=== PATIENT | male | born 1970 | race Caucasian/White ===

== ENCOUNTER 2018-03-22 11:57 | Inpatient (IN) | payer OTHER ==
[2018-03-22 12:46] VITALS: BMI 30.9
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
[2018-03-22] MEDS ORDERED: MAGNESIUM CITRATE 300 ML BOTTLE PO PRN (14:41)
[2018-03-22] MEDS ORDERED: IBUPROFEN 400 MG TABLET (FP) PO PRN (14:41)
[2018-03-22] MEDS ORDERED: ACETAMINOPHEN 325 MG TABLET (FP) PO PRN (14:41)
[2018-03-22] MEDS ORDERED: MAGNESIUM HYDROX 2400MG/30ML ORAL SUSPENSION 30 ML CUP PO PRN (14:41)
[2018-03-22] MEDS ORDERED: MENTHOL/PHENOL 1 EACH UD MM PRN (14:41)
[2018-03-22] MEDS ORDERED: P-EPHED 60MG/TRIPROLIDI 2.5MG TABLET PO PRN (14:41)
[2018-03-22] MEDS ORDERED: LOPERAMIDE HCL 2 MG CAPSULE PO PRN (14:41)
[2018-03-22] MEDS ORDERED: hydrOXYzine PAMOATE 25 MG CAPSULE (FP) PO PRN (14:41)
[2018-03-22] MEDS ORDERED: chlordiazePOXIDE HCL 25 MG CAPSULE PO PRN (14:41)
[2018-03-22] MEDS ORDERED: MAG HYDROX/AL HYDROX/SIMETH 30 ML UNIT-DOSE CUP PO PRN (14:41)
[2018-03-22] MEDS ORDERED: chlordiazePOXIDE HCL 25 MG CAPSULE PO ONE (15:05)
[2018-03-22] MEDS ORDERED: METHADONE HCL 10 MG TABLET (FOR DETOX USE ONLY) PO ONE ×2 (15:15→23:00)
[2018-03-22] MEDS: chlordiazePOXIDE HCL 25 MG CAPSULE PO SCH ×2 (16:30→22:24)
[2018-03-22 17:15] LABS: URINE APPEARANCE CLEAR; URINE BILIRUBIN NEGATIVE (<2.0 mg/dL); URINE COLOR YELLOW; URINE GLUCOSE (UA) NEGATIVE (NEGATIVE); URINE KETONE TRACE (NEGATIVE); URINE LEUK ESTERASE NEGATIVE (NEGATIVE); URINE NITRITE NEGATIVE (NEGATIVE); URINE PROTEIN NEGATIVE (NEGATIVE)
[2018-03-22] MEDS ORDERED: MELATONIN 5 MG TABLETS PO PRN (22:00)
[2018-03-22] MEDS: THIAMINE HCL 100 MG TABLET (FP) PO SCH (22:24)
[2018-03-23] MEDS: chlordiazePOXIDE HCL 25 MG CAPSULE PO SCH ×4 (05:18→22:09)
[2018-03-23] MEDS ORDERED: METHADONE HCL 10 MG TABLET (FOR DETOX USE ONLY) PO SCH (10:00)
--- NOTE | 2018-03-23 10:00 | EKG ---
Test Reason : Blood Pressure : / mmHG Vent. Rate : 088 BPM Atrial Rate : 088 BPM P-R Int : 160 ms QRS Dur : 084 ms QT Int : 366 ms P-R-T Axes : 058 064 031 degrees QTc Int : 442 ms NORMAL SINUS RHYTHM NORMAL ECG NO PREVIOUS ECGS AVAILABLE Confirmed by MAURI NEAL, ALBERTO ([id number]) on 03/23/2018 9:59:40 AM Referred By: Confirmed By:ALBERTO DOTSON MD
[2018-03-23] MEDS: PRENATAL VITAMINS W/ FOLIC ACID TABLET (FP) PO SCH (10:21)
[2018-03-23] MEDS: NICOTINE 21 MG/24 HOURS TOPICAL PATCH TD SCH (10:22)
[2018-03-23 10:25] LABS: HEMATOCRIT 39.9 % (35.4-49); HEMOGLOBIN 13.6 GM/dL (11.7-16.9); MCH 30.4 pg (25.7-33.7); MCHC 34.1 g/dl (32.0-35.9); MEAN CELL VOLUME 89.1 fl (80-96); MEAN PLT VOLUME 8.6 fl (7.5-11.1); PLATELET COUNT 274 K/MM3 (134-434); RBC 4.48 M/mm3 (4.00-5.60); RDW 13.1 % (11.9-15.9); WHITE BLOOD COUNT 6.9 K/mm3 (4.0-10.0)
[2018-03-23] MEDS: guaiFENesin/D-METHORPHAN HB 10 ML UNIT-DOSE CUPS PO PRN ×2 (10:39→17:57)
[2018-03-23 11:53] LABS: ALBUMIN 3.7 g/dl (3.4-5.0); ALK PHOS 59 U/L (45-117); ANION GAP 5 MMOL/L (8-16); BILIRUBIN,TOTAL 0.5 mg/dL (0.2-1); BLOOD UREA NITROGEN 22 mg/dL (7-18); CALCIUM 8.4 mg/dL (8.5-10.1); CHLORIDE 101 mmol/L (98-107); CO2 32 mmol/L (21-32); CREATININE 0.9 mg/dL (0.55-1.3); GLUCOSE,RANDOM 152 mg/dL (74-106); POTASSIUM 3.9 mmol/L (3.5-5.1); SGOT/AST 20 U/L (15-37); SGPT/ALT 32 U/L (13-61); SODIUM 137 mmol/L (136-145); TOT PROT 7.2 g/dl (6.4-8.2)
--- NOTE | 2018-03-23 14:36 | PN ---
[facility] CIWA - CIWA Score Nausea/Vomitin-No Nausea/No Vomiting Muscle Tremors: 1-None Visible, but [place] Anxiety: 1-Mildly Anxious Agitation: 0-Normal Activity Paroxysmal Sweats: No Perspiration Orientation: 0-Oriented Tacttile Disturbances: 0-None Auditory Disturbances: 0-None Visual Disturbances: 0-None Headache: 1-Very Mild CIWA-Ar Total Score: 3 S COWS - Scale Resting Pulse: 0= [place] 80 or Below Sweatin= No chills or Flushing Restless Observation: 0= Sits Still Pupil Size: 0= Normal to Room Light Bone or Joint Aches: 0= None Runny Nose/ Eye Tearin= None GI Upset > 30mins: 0= None Tremor Observation of Outstretched Hands: 0= None Yawning Observation: 0= None Anxiety or Irritability: 1=Feels Anxious/Irritable Goose Flesh Skin: 0=Smooth Skin COWS Score: 1 S Progress Note (SOAP) Subjective: patient presents with mild anxiety and headaches. States " i feel better than yesterday". Objective: 03/23/18 14:34 Laboratory Tests 03/22/18 03/22/18 03/23/18 06:00 16:10 06:00 WBC 6.9 RBC 4.48 Hgb 13.6 Hct 39.9 MCV 89.1 MCH 30.4 MCHC 34.1 RDW 13.1 Plt Count 274 D MPV 8.6 Sodium Potassium Chloride Carbon Dioxide Anion Gap BUN Creatinine Creat Clearance w eGFR Random Glucose Calcium Total Bilirubin AST ALT Alkaline Phosphatase Total Protein Albumin Urine Color Yellow Urine Appearance Clear Urine pH 5.0 Ur Specific [place] 1.027 Urine Protein Negative Urine Glucose (UA) Negative Urine Ketones Trace H Urine Blood Negative Urine Nitrite Negative Urine Bilirubin Negative Urine Urobilinogen 2.0 Ur Leukocyte Esterase Negative RPR Titer HIV 1&2 Antibody Screen Negative HIV P24 Antigen Negative 03/23/18 03/23/18 06:00 06:00 WBC RBC Hgb Hct MCV MCH MCHC RDW Plt Count MPV Sodium 137 Potassium 3.9 Chloride 101 Carbon Dioxide 32 Anion Gap 5 L BUN 22 H Creatinine 0.9 Creat Clearance w eGFR > 60 Random Glucose 152 H Calcium 8.4 L Total Bilirubin 0.5 AST 20 ALT 32 Alkaline Phosphatase 59 Total Protein 7.2 Albumin 3.7 Urine Color Urine Appearance Urine pH Ur Specific [place] Urine Protein Urine Glucose (UA) Urine Ketones Urine Blood Urine Nitrite Urine Bilirubin Urine Urobilinogen Ur Leukocyte Esterase RPR Titer Nonreactive HIV 1&2 Antibody Screen HIV P24 Antigen Vital Signs Temperature 97.6 F 03/23/18 13:24 Pulse Rate 91 H 03/23/18 13:24 Respiratory Rate 20 03/23/18 13:24 Blood Pressure 112/79 03/23/18 13:24 O2 Sat by Pulse Oximetry (%) alert and oriented skin warm and dry ext full ROM psych mild anxiety neuro cn 1-x11 grossly intact Assessment: 03/23/18 14:35 withdrawal syndrome Plan: continue detox as per protocol encourage oral fluids
[2018-03-23] MEDS: THIAMINE HCL 100 MG TABLET (FP) PO SCH (22:09)
[2018-03-24] MEDS: chlordiazePOXIDE HCL 25 MG CAPSULE PO SCH ×2 (05:16→10:11)
[2018-03-24] MEDS: PRENATAL VITAMINS W/ FOLIC ACID TABLET (FP) PO SCH (10:11)
[2018-03-24] MEDS: NICOTINE 21 MG/24 HOURS TOPICAL PATCH TD SCH (10:12)
[2018-03-24] MEDS: METHADONE HCL 5 MG TABLET (FOR DETOX USE ONLY) PO SCH (10:12)
[2018-03-24] MEDS: DOCUSATE SODIUM 100 MG CAPSULE (FP) PO SCH ×2 (10:13→22:17)
[2018-03-24] MEDS: TOLNAFTATE 1% CREAM 15 GM TUBE TP SCH ×2 (10:14→22:18)
--- NOTE | 2018-03-24 11:09 | PN ---
[facility] CIWA - CIWA Score Nausea/Vomitin-No Nausea/No Vomiting Muscle Tremors: 4-Moderate,w/Arms Extend Anxiety: 4-Mod. Anxious/Guarded Agitation: 4-Moderately Restless Paroxysmal Sweats: 1-Minimal Palms Moist Orientation: 0-Oriented Tacttile Disturbances: 0-None Auditory Disturbances: 0-None Visual Disturbances: 0-None Headache: 0-None Present CIWA-Ar Total Score: 13 BHS COWS - Scale Resting Pulse: 1= [place] 81-100 Sweatin= Chills/Flushing Restless Observation: 3= Extraneous Movement Pupil Size: 0= Normal to Room Light Bone or Joint Aches: 1= Mild Discomfort Runny Nose/ Eye Tearin= None GI Upset > 30mins: 0= None (BUT CONSTIPATION) Tremor Observation of Outstretched Hands: 1= Tremor [place], Not Seen Yawning Observation: 1= 1-2x During Session Anxiety or Irritability: 2=Irritable/Anxious Goose Flesh Skin: 0=Smooth Skin COWS Score: 10 S Progress Note (SOAP) Subjective: ANXIETY,IRRITABILITY, STOMACH DISCOMFORT-HX CONSTIPATION AND REQUESTING COLACE, HOT/COLD CHILLS,ITCHY FEET. Objective: 03/24/18 11:08 Vital Signs 03/24/18 03/24/18 03/24/18 03:30 06:10 09:50 Temperature 97.7 F 97.6 F Pulse Rate 78 95 H Respiratory 18 20 18 Rate Blood Pressure 110/70 101/64 Laboratory Tests 03/22/18 03/22/18 03/23/18 06:00 16:10 06:00 WBC 6.9 RBC 4.48 Hgb 13.6 Hct 39.9 MCV 89.1 MCH 30.4 MCHC 34.1 RDW 13.1 Plt Count 274 D MPV 8.6 Sodium Potassium Chloride Carbon Dioxide Anion Gap BUN Creatinine Creat Clearance w eGFR Random Glucose Calcium Total Bilirubin AST ALT Alkaline Phosphatase Total Protein Albumin Urine Color Yellow Urine Appearance Clear Urine pH 5.0 Ur Specific [place] 1.027 Urine Protein Negative Urine Glucose (UA) Negative Urine Ketones Trace H Urine Blood Negative Urine Nitrite Negative Urine Bilirubin Negative Urine Urobilinogen 2.0 Ur Leukocyte Esterase Negative RPR Titer HIV 1&2 Antibody Screen Negative HIV P24 Antigen Negative 09/20/18 09/20/18 06:00 06:00 WBC RBC Hgb Hct MCV MCH MCHC RDW Plt Count MPV Sodium 137 Potassium 3.9 Chloride 101 Carbon Dioxide 32 Anion Gap 5 L BUN 22 H Creatinine 0.9 Creat Clearance w eGFR > 60 Random Glucose 152 H Calcium 8.4 L Total Bilirubin 0.5 AST 20 ALT 32 Alkaline Phosphatase 59 Total Protein 7.2 Albumin 3.7 Urine Color Urine Appearance Urine pH Ur Specific [place] Urine Protein Urine Glucose (UA) Urine Ketones Urine Blood Urine Nitrite Urine Bilirubin Urine Urobilinogen Ur Leukocyte Esterase RPR Titer Nonreactive HIV 1&2 Antibody Screen HIV P24 Antigen GLC 152 FEET:DRY,SCALY Assessment: 03/24/18 11:08 WITHDRAWALS SX TINEA PEDIS Plan: CONTINUE DETOX TINACTIN CREAM APPLY DIRECTED COLACE 100 MG PO BID INCREASE PO FLUIDS
[2018-03-24] MEDS: chlordiazePOXIDE 5 MG CAPSULE PO SCH ×2 (17:40→22:17)
[2018-03-24] MEDS: guaiFENesin/D-METHORPHAN HB 10 ML UNIT-DOSE CUPS PO PRN (17:43)
[2018-03-24] MEDS: THIAMINE HCL 100 MG TABLET (FP) PO SCH (22:17)
[2018-03-25] MEDS: chlordiazePOXIDE 5 MG CAPSULE PO SCH ×2 (05:09→10:13)
[2018-03-25] MEDS: METHADONE HCL 5 MG TABLET (FOR DETOX USE ONLY) PO SCH (10:13)
[2018-03-25] MEDS: TOLNAFTATE 1% CREAM 15 GM TUBE TP SCH ×2 (10:13→22:10)
[2018-03-25] MEDS: PRENATAL VITAMINS W/ FOLIC ACID TABLET (FP) PO SCH (10:13)
[2018-03-25] MEDS: NICOTINE 21 MG/24 HOURS TOPICAL PATCH TD SCH (10:15)
[2018-03-25] MEDS: DOCUSATE SODIUM 100 MG CAPSULE (FP) PO SCH ×2 (10:16→22:10)
--- NOTE | 2018-03-25 10:22 | PN ---
BHS Progress Note (SOAP) Subjective: sweats sleep disturbance Shakes Objective: 03/25/18 10:20 A & O x 3 Anxious Vital Signs Temperature 97.7 F 03/25/18 09:06 Pulse Rate 92 H 03/25/18 09:06 Respiratory Rate 03/25/18 09:06 Blood Pressure 111/66 03/25/18 09:06 O2 Sat by Pulse Oximetry (%) Assessment: 03/25/18 10:21 Withdrawal sx Anxiety Plan: Continue detox Increase hydration
[2018-03-25] MEDS: chlordiazePOXIDE HCL 10 MG CAPSULE PO SCH ×2 (17:41→22:10)
[2018-03-25] MEDS: THIAMINE HCL 100 MG TABLET (FP) PO SCH (22:10)
[2018-03-26] MEDS: chlordiazePOXIDE HCL 10 MG CAPSULE PO SCH ×2 (05:40→10:09)
[2018-03-26] MEDS ORDERED: METHADONE HCL 10 MG TABLET (FOR DETOX USE ONLY) PO SCH (10:00)
[2018-03-26] MEDS: DOCUSATE SODIUM 100 MG CAPSULE (FP) PO SCH ×2 (10:09→22:11)
[2018-03-26] MEDS: PRENATAL VITAMINS W/ FOLIC ACID TABLET (FP) PO SCH (10:09)
[2018-03-26] MEDS: TOLNAFTATE 1% CREAM 15 GM TUBE TP SCH ×2 (10:09→22:12)
[2018-03-26] MEDS: NICOTINE 21 MG/24 HOURS TOPICAL PATCH TD SCH (10:11)
--- NOTE | 2018-03-26 12:55 | PN ---
BHS Progress Note (SOAP) Subjective: Body ache, interrupted sleep Objective: 03/26/18 12:50 Last Vital Signs Temp Pulse Resp BP Pulse Ox 97.5 F L 68 16 107/67 03/26/18 09:20 03/26/18 09:20 03/26/18 09:20 03/26/18 09:20 Laboratory Tests 03/22/18 03/22/18 03/23/18 06:00 16:10 06:00 WBC 6.9 RBC 4.48 Hgb 13.6 Hct 39.9 MCV 89.1 MCH 30.4 MCHC 34.1 RDW 13.1 Plt Count 274 D MPV 8.6 Sodium Potassium Chloride Carbon Dioxide Anion Gap BUN Creatinine Creat Clearance w eGFR Random Glucose Calcium Total Bilirubin AST ALT Alkaline Phosphatase Total Protein Albumin Urine Color Yellow Urine Appearance Clear Urine pH 5.0 Ur Specific [place] 1.027 Urine Protein Negative Urine Glucose (UA) Negative Urine Ketones Trace H Urine Blood Negative Urine Nitrite Negative Urine Bilirubin Negative Urine Urobilinogen 2.0 Ur Leukocyte Esterase Negative RPR Titer HIV 1&2 Antibody Screen Negative HIV P24 Antigen Negative 03/23/18 03/23/18 06:00 06:00 WBC RBC Hgb Hct MCV MCH MCHC RDW Plt Count MPV Sodium 137 Potassium 3.9 Chloride 101 Carbon Dioxide 32 Anion Gap 5 L BUN 22 H Creatinine 0.9 Creat Clearance w eGFR > 60 Random Glucose 152 H Calcium 8.4 L Total Bilirubin 0.5 AST 20 ALT 32 Alkaline Phosphatase 59 Total Protein 7.2 Albumin 3.7 Urine Color Urine Appearance Urine pH Ur Specific [place] Urine Protein Urine Glucose (UA) Urine Ketones Urine Blood Urine Nitrite Urine Bilirubin Urine Urobilinogen Ur Leukocyte Esterase RPR Titer Nonreactive HIV 1&2 Antibody Screen HIV P24 Antigen Labs reviewed: bun 22, glucose 152 Assessment: 03/26/18 12:52 Withdrawal symptoms Noted with azotemia and hyperglycemia Plan: Continue detox Azotemia: encouraged PO water hydration Hyperglycemia: repeat fasting glucose, send HbA1c; start finger stick glucose AC meal with sliding scale insulin coverage
[2018-03-26] MEDS: INSULIN SLIDING SCALE (NOVOLOG) 1 VIAL SQ SCH (16:40)
[2018-03-26] MEDS: THIAMINE HCL 100 MG TABLET (FP) PO SCH (22:11)
[2018-03-27] MEDS ORDERED: METHADONE HCL 5 MG TABLET (FOR DETOX USE ONLY) PO SCH (06:00)
[2018-03-27] MEDS: INSULIN SLIDING SCALE (NOVOLOG) 1 VIAL SQ SCH ×2 (07:39→12:08)
[2018-03-27] MEDS: DOCUSATE SODIUM 100 MG CAPSULE (FP) PO SCH (10:20)
[2018-03-27] MEDS: PRENATAL VITAMINS W/ FOLIC ACID TABLET (FP) PO SCH (10:20)
[2018-03-27 10:51] VITALS: BP 114/71; PULSE 74; TEMP 98.7
--- NOTE | 2018-03-27 11:26 | PN ---
S Progress Note (SOAP) Subjective: No complaint offered Objective: 03/27/18 11:25 On bed comfortable, in no distress Vital Signs Temperature 98.7 F 03/27/18 10:50 Pulse Rate 74 03/27/18 10:50 Respiratory Rate 20 03/27/18 10:50 Blood Pressure 114/71 03/27/18 10:50 O2 Sat by Pulse Oximetry (%) Assessment: 03/27/18 11:26 detox completed Plan: for discharge
--- NOTE | 2018-03-27 11:32 | DS ---
[facility] Detox Discharge Summary Admission Date: 03/22/18 Discharge Date: 03/27/18 - History Additional Comments: pt for discharge will do aftercare by attending Rehab at [facility] No home meds - Physical Exam Results Vital Signs: Vital Signs Temperature 98.7 F 03/27/18 10:50 Pulse Rate 74 03/27/18 10:50 Respiratory Rate 20 03/27/18 10:50 Blood Pressure 114/71 03/27/18 10:50 O2 Sat by Pulse Oximetry (%) Pertinent Admission Physical Exam Findings: withdrawal sx - Treatment Hospital Course: Detox Protocol Followed, Detoxed Safely, Responded well, Discharged Condition Good, Rehab Referral Accepted Patient has Accepted a Rehab Referral to: [facility] Rehab - Medication Discharge Medications: Ambulatory Orders NK [No Known Home Medication] 03/22/18 - Diagnosis (1) Alcohol dependence with uncomplicated withdrawal Current Visit: Yes Status: Acute (2) Cocaine dependence, uncomplicated Current Visit: Yes Status: Chronic (3) Constipation Current Visit: Yes Status: Chronic (4) Opioid dependence with withdrawal Current Visit: Yes Status: Acute (5) Sedative, hypnotic or anxiolytic dependence with withdrawal, uncomplicated Current Visit: Yes Status: Acute (6) Tinea pedis Current Visit: Yes Status: Acute (7) Obesity Current Visit: Yes Status: Chronic Qualifiers: Obesity type: unspecified obesity type Body mass index: BMI 31.0-31.9 - AMA Did Patient Leave Against Medical Advice: No
[2018-03-27] MEDS: TOLNAFTATE 1% CREAM 15 GM TUBE TP SCH (12:36)
[2018-03-27] MEDS: NICOTINE 21 MG/24 HOURS TOPICAL PATCH TD SCH (12:36)
== END 2018-03-27 12:25 | disposition other institution (70) | DRG 773 ==
LOC: YASAS 11:57 → Y3N 15:00
PROC: HZ2ZZZZ Detoxification Services for Substance Abuse Treatment (ICD-10-PCS; principal; 2018-03-22)
DX: F11.23 Opioid dependence with withdrawal (principal); F10.230 Alcohol dependence with withdrawal, uncomplicated; F13.230 Sedative, hypnotic or anxiolytic dependence with withdrawal, uncomplicated; F14.20 Cocaine dependence, uncomplicated; B35.3 Tinea pedis; R79.89 Other specified abnormal findings of blood chemistry; R73.9 Hyperglycemia, unspecified; K59.00 Constipation, unspecified; E66.9 Obesity, unspecified; Z68.31 Body mass index [BMI] 31.0-31.9, adult
CPT/HCPCS: 36415; 80053; 81003; 82962; 85027; 86593; 87389; 93005; 93010

== ENCOUNTER 2018-03-27 12:35 | Inpatient (IN) | payer OTHER ==
[2018-03-27] MEDS ORDERED: MENTHOL/PHENOL 1 EACH UD MM PRN (15:57)
[2018-03-27] MEDS ORDERED: LOPERAMIDE HCL 2 MG CAPSULE PO PRN (15:57)
[2018-03-27] MEDS ORDERED: MAGNESIUM CITRATE 300 ML BOTTLE PO PRN (15:57)
[2018-03-27] MEDS ORDERED: MAGNESIUM HYDROX 2400MG/30ML ORAL SUSPENSION 30 ML CUP PO PRN (15:57)
[2018-03-27] MEDS ORDERED: P-EPHED 60MG/TRIPROLIDI 2.5MG TABLET PO PRN (15:57)
[2018-03-27] MEDS ORDERED: MAG HYDROX/AL HYDROX/SIMETH 30 ML UNIT-DOSE CUP PO PRN (15:57)
[2018-03-27] MEDS ORDERED: ACETAMINOPHEN 325 MG TABLET (FP) PO PRN (15:57)
[2018-03-27] MEDS ORDERED: guaiFENesin/D-METHORPHAN HB 10 ML UNIT-DOSE CUPS PO PRN (15:57)
--- NOTE | 2018-03-27 15:58 | HP ---
CLAIRE [facility]AL Rehab Assess/Revision - Admission History Admitted to Rehab from: [facility] Date of Admission to Rehab: 03/27/18 - Vital signs Vital Signs: Vital Signs Period Temp Pulse Resp BP Sys/Flynn Pulse Ox Last 24 Hr 98.2 F 90 18 122/69 - Findings Detox History & Physical reviewed: Yes Concur with findings: Yes Inpatient Rehab Admission - Initial Determination Are CD services needed?: Yes Free of communicable disease: Yes Not in need of hospitalization: Yes - Rehab Admission Criteria Patient is meeting Inpatient Rehab admission criteria:: Yes
--- NOTE | 2018-03-27 16:00 | HP ---
<Lyric [place] - Last Filed: 03/28/18 09:41> Psychiatrist Admission - Data Date of interview: 03/27/18 Admission source: [address] [place] [address] Identifying data: this is the first admission to [address] [place] [address] rehabilitation [facility] this 48 years old father of 3,undomiciled,unemployed ,supported by PA. Medical History: unremarkable Psychiatric History: patient denies psychiatric history,but reports sleep disturbance on and off. Vital Signs: Vital Signs - 24 hr 03/27/18 13:24 Temperature 98.2 F Pulse Rate 90 Respiratory 18 Rate Blood Pressure 122/69 Allergies/Adverse Reactions: Allergies Allergy/AdvReac Type Severity Reaction Status Date / Time No Known Allergies Allergy Verified 03/27/18 15:10 Date of last physical exam: 03/27/18 Concur with the findings of this exam: Yes - Substance Abuse/Tx History Hx Alcohol Use: Yes Hx Substance Use: Yes Substance Use Type: Alcohol, Cocaine, Heroin Hx Substance Use Treatment: Yes (reports a few years of abstinence) Mental Status Exam - Mental Status Exam Alert and Oriented to: Time, Place, Person Cognitive Function: Grossly Intact Patient Appearance: Well Groomed Mood: Anxious Affect: Mood Congruent, Labile Patient Behavior: Cooperative Speech Pattern: Clear Voice Loudness: Normal Thought Process: Goal Oriented Thought Disorder: Not Present Hallucinations: Denies Suicidal Ideation: Denies Homicidal Ideation: Denies Insight/Judgement: Fair Sleep: Difficulty falling asleep Appetite: Fair Muscle strength/Tone: Normal Gait/Station: Normal Psychiatric Findings - Problem List ([place] 1, 2,3) (1) Tinea pedis Current Visit: Yes Status: Chronic (2) Chronic alcoholism Current Visit: Yes Status: Chronic (3) Opioid dependence Current Visit: Yes Status: Chronic (4) Anxiolytic dependence Current Visit: Yes Status: Chronic (5) Cocaine dependence, uncomplicated Current Visit: Yes Status: Chronic (6) Substance induced mood disorder Current Visit: Yes Status: Chronic - Initial Treatment Plan Initial Treatment Plan: benadryl 50 mg po hs.will monitor progress. <Sin [place] - Last Filed: 03/30/18 10:02> Psychiatrist Admission - Data Vital Signs: Vital Signs - 24 hr 03/30/18 03/30/18 03/30/18 00:30 03:30 07:17 Temperature 98.4 F Pulse Rate 88 Respiratory 18 18 18 Rate Blood Pressure 108/83
[2018-03-27] MEDS: diphenhydrAMINE HCL 25 MG CAPSULE (FP) PO PRN (21:48)
[2018-03-27] MEDS: THIAMINE HCL 100 MG TABLET (FP) PO SCH (21:48)
[2018-03-27] MEDS: MELATONIN 5 MG TABLETS PO PRN (21:48)
[2018-03-28] MEDS: hydrOXYzine PAMOATE 50 MG CAPSULE (FP) PO PRN ×2 (09:25→14:49)
[2018-03-28] MEDS: PRENATAL VITAMINS W/ FOLIC ACID TABLET (FP) PO SCH (10:55)
[2018-03-28] MEDS: THIAMINE HCL 100 MG TABLET (FP) PO SCH (21:34)
[2018-03-28] MEDS: MELATONIN 5 MG TABLETS PO PRN (21:35)
[2018-03-28] MEDS: diphenhydrAMINE HCL 25 MG CAPSULE (FP) PO PRN (21:35)
[2018-03-29] MEDS: IBUPROFEN 400 MG TABLET (FP) PO PRN ×2 (06:45→21:29)
[2018-03-29] MEDS: hydrOXYzine PAMOATE 50 MG CAPSULE (FP) PO PRN ×2 (06:45→10:45)
[2018-03-29] MEDS: PRENATAL VITAMINS W/ FOLIC ACID TABLET (FP) PO SCH (10:42)
--- NOTE | 2018-03-29 10:44 | PN ---
BHS Progress Note Note: FOLLOWING UP WITH PT WITH SLIGHT BLOOD GLUCOSE ELEVATIONS FROM DETOX. SEEN BY DIETITIAN TODAY. REQUESTS REPEAT FASTING BGM. PT DENIES ANY HX OF DM OR PREVIOUS ELEVATED GLUCOSE LEVELS Vital Signs 03/29/18 03/29/18 03:30 06:52 Temperature 98.0 F Pulse Rate 96 H Respiratory 18 18 Rate Blood Pressure 111/66 BGM 111 AND 139 MG/DL IN DETOX REPEAT BGM X 2 DAYS. F/U WITH RESULTS. DIET MODIFICATION IF NEEDED HERE IN REHAB
[2018-03-29] MEDS: diphenhydrAMINE HCL 25 MG CAPSULE (FP) PO PRN (21:28)
[2018-03-29] MEDS: THIAMINE HCL 100 MG TABLET (FP) PO SCH (21:28)
[2018-03-29] MEDS: MELATONIN 5 MG TABLETS PO PRN (21:29)
[2018-03-30 07:18] VITALS: BP 108/83; PULSE 88; TEMP 98.4
[2018-03-30] MEDS: IBUPROFEN 400 MG TABLET (FP) PO PRN (07:36)
[2018-03-30] MEDS: hydrOXYzine PAMOATE 50 MG CAPSULE (FP) PO PRN (07:36)
== END 2018-03-30 08:45 | disposition left against medical advice (07) | DRG 770 ==
LOC: YASAS 12:35 → Y5N 12:36
PROVIDERS: ADMIT Psychiatry & Neurology Psychiatry; ATTEND Psychiatry & Neurology Psychiatry
PROC: HZ42ZZZ Group Counseling for Substance Abuse Treatment, Cognitive-Behavioral (ICD-10-PCS; principal; 2018-03-27)
DX: F11.20 Opioid dependence, uncomplicated (principal); F10.20 Alcohol dependence, uncomplicated; F13.20 Sedative, hypnotic or anxiolytic dependence, uncomplicated; F14.20 Cocaine dependence, uncomplicated; F19.24 Other psychoactive substance dependence with psychoactive substance-induced mood disorder; B35.3 Tinea pedis; R73.9 Hyperglycemia, unspecified

== ENCOUNTER 2020-02-01 09:59 | Inpatient (IN) | payer OTHER ==
--- NOTE | 2020-02-01 10:20 | BHS.RME ---
Substance Use & Tx History - Substance Use History Alcohol Substance amount: 4-5 beers + 1/2 pint vodka Frequency of use: Daily Substance route: Oral Date of Last Use: 02/01/20 (2am) Heroin Substance amount: 6-8 bags Frequency of use: Daily Substance route: Inhalation (ex: sniffing or snorting) Date of Last Use: 01/31/20 Xanax Substance amount: 2 mg - 2 tabs Frequency of use: Less than 3 times per week Substance route: Oral Date of Last Use: 01/25/20 - Last Treatment Date of last treatment: 2017 Treatment type: Substance Use Disorder ([place]) Where was last treatment: Detox Physical/Psych/Mental Status - Behavior General Behavior: Increased activity (restlessness, agitation) Eye Contact: Normal - Cooperativeness Cooperativeness: Cooperative - Thinking Thought Processes: Tight, Logical, Goal Directed - Physical Health Problems Is patient presently having any pain?: No Does patient presently have any injuries (include location): No Does patient currently have a fever: No Is patient : No COWS - Scale Resting Pulse: 1= [place] 81-100 Sweatin=Flushed/Facial Moisture Restless Observation: 1= Difficult to Sit Still Pupil Size: 1= Pupils >than Normal Bone or Joint Aches: 1= Mild Discomfort Runny Nose/ Eye Tearin= Runny Nose/Eyes GI Upset > 30mins: 1= Stomach Cramp Tremor Observation: 1= Tremor [place], Not Seen Yawning Observation: 0= None Anxiety or Irritability: 2=Irritable/Anxious Goose Flesh Skin: 0=Smooth Skin COWS Score: 12 CIWA Nausea/Vomitin-Mild Nausea/No Vomiting Muscle Tremors: 3 Anxiety: 3 Agitation: 3 Paroxysmal Sweats: 1-Minimal Palms Moist Orientation: 0-Oriented Tacttile Disturbances: 0-None Auditory Disturbances: 0-None Visual Disturbances: 0-None Headache: 1-Very Mild CIWA-Ar Total Score: 12
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
[2020-02-01] MEDS ORDERED: ACETAMINOPHEN 325 MG TABLET (FP) PO PRN ×2 (10:59)
[2020-02-01] MEDS ORDERED: ONDANSETRON *ODT* 4 MG TABLET SL ONE (10:59)
[2020-02-01] MEDS ORDERED: MENTHOL/PHENOL 1 EACH UD MM PRN (10:59)
[2020-02-01] MEDS ORDERED: BISMUTH SUBSALICYLATE 262 MG/15 ML BTL PO PRN (10:59)
[2020-02-01] MEDS ORDERED: chlordiazePOXIDE HCL 25 MG CAPSULE PO PRN (10:59)
[2020-02-01] MEDS ORDERED: MAGNESIUM CITRATE 300 ML BOTTLE PO PRN (10:59)
[2020-02-01] MEDS ORDERED: cloNIDine HCL 0.1 MG TABLET PO PRN (10:59)
[2020-02-01] MEDS ORDERED: MAGNESIUM HYDROX 2400MG/30ML ORAL SUSPENSION 30 ML CUP PO PRN (10:59)
[2020-02-01] MEDS ORDERED: METHOCARBAMOL 500 MG TABLET PO PRN (10:59)
[2020-02-01] MEDS ORDERED: MAG HYDROX/AL HYDROX/SIMETH 30 ML UNIT-DOSE CUP PO PRN (10:59)
[2020-02-01] MEDS ORDERED: IBUPROFEN 400 MG TABLET (FP) PO PRN (10:59)
[2020-02-01] MEDS ORDERED: METHADONE HCL 10 MG TABLET (FOR DETOX USE ONLY) PO ONE (10:59)
[2020-02-01 11:23] VITALS: BMI 28.5
[2020-02-01] MEDS ORDERED: TUBERCULIN PPD 5 TU/0.1ML VIAL ID ONE ×2 (12:08→13:29)
[2020-02-01] MEDS: PRENATAL VITAMINS W/ FOLIC ACID TABLET (FP) PO SCH (12:17)
[2020-02-01] MEDS: chlordiazePOXIDE HCL 25 MG CAPSULE PO SCH ×3 (12:18→22:16)
[2020-02-01] MEDS: TOLNAFTATE 1% CREAM 15 GM TUBE TP SCH ×2 (12:22→22:16)
[2020-02-01] MEDS: hydrOXYzine PAMOATE 25 MG CAPSULE (FP) PO SCH ×3 (13:15→22:16)
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
[2020-02-01 14:34] LABS: HEMATOCRIT 39.2 % (35.4-49); HEMOGLOBIN 13.2 GM/dL (11.7-16.9); MCH 30.4 pg (25.7-33.7); MCHC 33.7 g/dl (32.0-35.9); MEAN CELL VOLUME 90.4 fl (80-96); MEAN PLT VOLUME 9.1 fl (7.5-11.1); PLATELET COUNT 246 K/MM3 (134-434); RBC 4.34 M/mm3 (4.00-5.60); WHITE BLOOD COUNT 5.9 K/mm3 (4.0-10.0)
[2020-02-01 14:46] LABS: ALBUMIN 3.8 g/dl (3.4-5.0); BILIRUBIN,TOTAL 0.5 mg/dL (0.2-1); BLOOD UREA NITROGEN 18.9 mg/dL (7-18); CALCIUM 8.7 mg/dL (8.5-10.1); CREATININE 0.9 mg/dL (0.55-1.3); POTASSIUM 4.3 mmol/L (3.5-5.1); TOT PROT 6.7 g/dl (6.4-8.2)
[2020-02-01] MEDS ORDERED: MELATONIN 5 MG TABLETS PO SCH (22:00)
[2020-02-01] MEDS: THIAMINE HCL 100 MG TABLET (FP) PO SCH (22:16)
[2020-02-01] MEDS: MELATONIN 5 MG TABLETS PO PRN (22:16)
[2020-02-02] MEDS: chlordiazePOXIDE HCL 25 MG CAPSULE PO SCH ×4 (06:46→22:15)
[2020-02-02] MEDS: hydrOXYzine PAMOATE 25 MG CAPSULE (FP) PO SCH ×5 (06:46→22:14)
[2020-02-02] MEDS ORDERED: METHADONE (DETOX) 20 MG, METHADONE (DETOX) 5 MG PO ONE (10:00)
[2020-02-02] MEDS: PRENATAL VITAMINS W/ FOLIC ACID TABLET (FP) PO SCH (10:26)
[2020-02-02] MEDS ORDERED: METHADONE HCL 5 MG TABLET (FOR DETOX USE ONLY) ONE (10:28)
[2020-02-02] MEDS ORDERED: METHADONE HCL 10 MG TABLET (FOR DETOX USE ONLY) ONE (10:28)
--- NOTE | 2020-02-02 10:28 | PN ---
[facility] CIWA - CIWA Score Nausea/Vomitin-No Nausea/No Vomiting Muscle Tremors: 2 Anxiety: 3 Agitation: 1-Slight > Activity Paroxysmal Sweats: 3 Orientation: 0-Oriented Tacttile Disturbances: 0-None Auditory Disturbances: 0-None Visual Disturbances: 0-None Headache: 1-Very Mild CIWA-Ar Total Score: 10 S COWS - Scale Resting Pulse: 1= [place] 81-100 Sweatin= Beads of Sweat on Face Restless Observation: 1= Difficult to Sit Still Pupil Size: 0= Normal to Room Light Bone or Joint Aches: 2= Severe Diffuse Aches Runny Nose/ Eye Tearin= None GI Upset > 30mins: 0= None Tremor Observation of Outstretched Hands: 0= None Yawning Observation: 1= 1-2x During Session Anxiety or Irritability: 2=Irritable/Anxious Goose Flesh Skin: 0=Smooth Skin COWS Score: 10 S Progress Note (SOAP) Subjective: c/o anxiety, irritability, sweats, muscle aches, shakes, and headache. Objective: 02/02/20 10:27 Vital Signs 02/02/20 02/02/20 02/02/20 05:59 09:38 09:39 Temperature 97.7 F 97.3 F L Pulse Rate 65 84 Respiratory 19 18 Rate Blood Pressure 112/61 117/68 O2 Sat by Pulse 96 96 96 Oximetry (%) Laboratory Last Values WBC 5.9 K/mm3 (4.0-10.0) 02/01/20 11:00 RBC 4.34 M/mm3 (4.00-5.60) 02/01/20 11:00 Hgb 13.2 GM/dL (11.7-16.9) 02/01/20 11:00 Hct 39.2 % (35.4-49) 02/01/20 11:00 MCV 90.4 fl (80-96) 02/01/20 11:00 MCH 30.4 pg (25.7-33.7) 02/01/20 11:00 MCHC 33.7 g/dl (32.0-35.9) 02/01/20 11:00 RDW 13.0 % (11.9-15.9) 02/01/20 11:00 Plt Count 246 K/MM3 (134-434) 02/01/20 11:00 MPV 9.1 fl (7.5-11.1) 02/01/20 11:00 Sodium 139 mmol/L (136-145) 02/01/20 11:00 Potassium 4.3 mmol/L (3.5-5.1) 02/01/20 11:00 Chloride 103 mmol/L (98-107) 02/01/20 11:00 Carbon Dioxide 32 mmol/L (21-32) 02/01/20 11:00 Anion Gap 4 MMOL/L (8-16) L 02/01/20 11:00 BUN 18.9 mg/dL (7-18) H 02/01/20 11:00 Creatinine 0.9 mg/dL (0.55-1.3) 02/01/20 11:00 Est GFR (CKD-EPI)AfAm 115.83 02/01/20 11:00 Est GFR (CKD-EPI)NonAf 99.94 02/01/20 11:00 Random Glucose 120 mg/dL (74-106) H 02/01/20 11:00 Calcium 8.7 mg/dL (8.5-10.1) 02/01/20 11:00 Total Bilirubin 0.5 mg/dL (0.2-1) 02/01/20 11:00 AST 16 U/L (15-37) 02/01/20 11:00 ALT 61 U/L (13-61) 02/01/20 11:00 Alkaline Phosphatase 46 U/L (45-117) 02/01/20 11:00 Total Protein 6.7 g/dl (6.4-8.2) 02/01/20 11:00 Albumin 3.8 g/dl (3.4-5.0) 02/01/20 11:00 Syphilis Serology Non-reactive (NONREACTIVE) 02/01/20 11:00 Labs noted. Assessment: 02/02/20 10:27 AOX3, in no acute respiratory distress. Full ROM, ambulating in the unit. Withdrawal symptoms. Plan: continue detox.
[2020-02-02] MEDS: TOLNAFTATE 1% CREAM 15 GM TUBE TP SCH ×2 (10:29→22:16)
[2020-02-02] MEDS: THIAMINE HCL 100 MG TABLET (FP) PO SCH (22:14)
[2020-02-02] MEDS: MELATONIN 5 MG TABLETS PO PRN (22:14)
[2020-02-03] MEDS ORDERED: chlordiazePOXIDE HCL 25 MG CAPSULE PO SCH (05:00)
[2020-02-03] MEDS: hydrOXYzine PAMOATE 25 MG CAPSULE (FP) PO SCH (06:33)
[2020-02-03 09:13] VITALS: BP 129/84; PULSE 94; TEMP 97.6
[2020-02-03] MEDS ORDERED: METHADONE HCL 10 MG TABLET (FOR DETOX USE ONLY) PO ONE (10:00)
--- NOTE | 2020-02-03 15:09 | DS ---
[facility] Detox Discharge Summary Admission Date: 02/01/20 Discharge Date: 02/03/20 - History Present History: Alcohol Dependence, Opioid Dependence, Sedative Dependence Additional Comments: 49 years old male admitted on 02/01/20 for alcohol benzo opiate withdrawal sx management treating with librium and methadone detox regiments positive methadone urine tox upon admission mr cardoza is taking suboxone 12mg po daily last filled monthly on 01/10/20 negative suboxone in urine tox mr cardoza insists to leave the detox today that he has to return to work refuses exist examination Pertinent Past History: time for discharge 40 minutes treatment team met with the patient to discuss the benefit of librium and methadone completion mr cardoza may return to suboxone program for behavior and psychosocial therapies - Physical Exam Results Vital Signs: Vital Signs Temperature 97.6 F 02/03/20 08:41 Pulse Rate 94 H 02/03/20 08:41 Respiratory Rate 18 02/03/20 08:41 Blood Pressure 129/84 02/03/20 08:41 O2 Sat by Pulse Oximetry (%) 99 02/03/20 05:38 Pertinent Admission Physical Exam Findings: alcohol benzo opiate withdrawal Laboratory Tests 02/01/20 02/01/20 02/01/20 11:00 11:00 11:00 WBC 5.9 RBC 4.34 Hgb 13.2 Hct 39.2 MCV 90.4 MCH 30.4 MCHC 33.7 RDW 13.0 Plt Count 246 MPV 9.1 Sodium 139 Potassium 4.3 Chloride 103 Carbon Dioxide 32 Anion Gap 4 L BUN 18.9 H Creatinine 0.9 Est GFR (CKD-EPI)AfAm 115.83 Est GFR (CKD-EPI)NonAf 99.94 Random Glucose 120 H Calcium 8.7 Total Bilirubin 0.5 AST 16 ALT 61 Alkaline Phosphatase 46 Total Protein 6.7 Albumin 3.8 Syphilis Serology Non-reactive COVID-19 (HENRRY) HIV Ag/Ab Combo Qual 02/01/20 02/02/20 12:15 06:00 WBC RBC Hgb Hct MCV MCH MCHC RDW Plt Count MPV Sodium Potassium Chloride Carbon Dioxide Anion Gap BUN Creatinine Est GFR (CKD-EPI)AfAm Est GFR (CKD-EPI)NonAf Random Glucose Calcium Total Bilirubin AST ALT Alkaline Phosphatase Total Protein Albumin Syphilis Serology COVID-19 (HENRRY) Not detected HIV Ag/Ab Combo Qual Negative glucose elevation encourage weight loss - Treatment Hospital Course: Detox Protocol Followed, Responded well Patient has Accepted a Rehab Referral to: [facility] [place]/suboxone maintenance program - Medication Discharge Medications: Ambulatory Orders NK [No Known Home Medication] 03/22/18 - Diagnosis (1) Encounter for monitoring Suboxone maintenance therapy Status: Chronic (2) Alcohol dependence with uncomplicated withdrawal Status: Acute (3) Hyperglycemia Status: Chronic (4) Opioid dependence with withdrawal Status: Acute (5) Sedative, hypnotic or anxiolytic dependence with withdrawal, uncomplicated Status: Acute (6) Obesity Status: Chronic Qualifiers: Obesity type: due to excess calories Serious obesity comorbidity presence: without serious comorbidity Body mass index: BMI 30.0-30.9 (7) Substance induced mood disorder Status: Suspected - AMA Did Patient Leave Against Medical Advice: Yes
[2020-02-04] MEDS ORDERED: chlordiazePOXIDE HCL 10 MG CAPSULE PO PRN
[2020-02-04] MEDS ORDERED: chlordiazePOXIDE HCL 10 MG CAPSULE PO SCH (05:00)
[2020-02-04] MEDS ORDERED: METHADONE (DETOX) 10 MG, METHADONE (DETOX) 5 MG PO ONE (10:00)
[2020-02-05] MEDS ORDERED: chlordiazePOXIDE HCL 10 MG CAPSULE PO SCH (05:00)
[2020-02-05] MEDS ORDERED: METHADONE HCL 10 MG TABLET (FOR DETOX USE ONLY) PO ONE (10:00)
[2020-02-06] MEDS ORDERED: chlordiazePOXIDE HCL 10 MG CAPSULE PO ONE (05:00)
[2020-02-06] MEDS ORDERED: METHADONE HCL 5 MG TABLET (FOR DETOX USE ONLY) PO ONE (06:00)
== END 2020-02-03 10:00 | disposition left against medical advice (07) | DRG 770 ==
LOC: YASAS 09:59 → Y5N DETOX 11:38
PROVIDERS: ADMIT Allergy & Immunology; ATTEND Allergy & Immunology
PROC: HZ2ZZZZ Detoxification Services for Substance Abuse Treatment (ICD-10-PCS; principal; 2020-02-01)
DX: F10.230 Alcohol dependence with withdrawal, uncomplicated (principal); F11.23 Opioid dependence with withdrawal; F13.230 Sedative, hypnotic or anxiolytic dependence with withdrawal, uncomplicated; F19.280 Other psychoactive substance dependence with psychoactive substance-induced anxiety disorder; F19.282 Other psychoactive substance dependence with psychoactive substance-induced sleep disorder; F39 Unspecified mood [affective] disorder; R73.9 Hyperglycemia, unspecified; B35.3 Tinea pedis; E66.9 Obesity, unspecified; Z68.30 Body mass index [BMI] 30.0-30.9, adult; Z87.891 Personal history of nicotine dependence; Z62.810 Personal history of physical and sexual abuse in childhood; Z59.0 Homelessness
CPT/HCPCS: 36415; 80053; 85027; 86780; 87389; U0003

== ENCOUNTER 2022-11-03 09:52 | Inpatient (IN) | payer OTHER ==
[2022-11-03 10:20] VITALS: BMI 32.1
[2022-11-03] MEDS ORDERED: hydrOXYzine PAMOATE 25 MG CAPSULE (FP) PO PRN (10:31)
[2022-11-03] MEDS ORDERED: chlordiazePOXIDE HCL 25 MG CAPSULE PO PRN (10:31)
[2022-11-03] MEDS ORDERED: NALOXONE HCL 0.4 MG/ML VIAL IM PRN (10:31)
[2022-11-03] MEDS ORDERED: POLYETHYLENE GLYCOL (HEALTHYLAX) 3350 17 GM PACKET PO PRN (10:31)
[2022-11-03] MEDS ORDERED: guaiFENesin 600 MG TABLET.ER (FP) PO PRN (10:31)
[2022-11-03] MEDS ORDERED: ACETAMINOPHEN 325 MG TABLET (FP) PO PRN (10:31)
[2022-11-03] MEDS ORDERED: METHOCARBAMOL 500 MG TABLET PO PRN (10:31)
[2022-11-03] MEDS ORDERED: LOPERAMIDE HCL 2 MG CAPSULE PO PRN (10:31)
[2022-11-03] MEDS ORDERED: ONDANSETRON *ODT* 4 MG TABLET SL PRN (10:31)
[2022-11-03] MEDS ORDERED: MAGNESIUM HYDROX 2400MG/30ML ORAL SUSPENSION 30 ML CUP PO PRN (10:31)
[2022-11-03] MEDS ORDERED: DICYCLOMINE HCL 10 MG CAPSULE PO PRN (10:31)
[2022-11-03] MEDS ORDERED: BENZOCAINE/MENTHOL (CHLORASEPTIC ) LOZENGE MM PRN (10:31)
[2022-11-03] MEDS ORDERED: NALOXONE HCL (KLOXXADO) 8 MG SPRAY NS PRN (10:31)
[2022-11-03] MEDS ORDERED: MAG HYDROX/AL HYDROX/SIMETH 30 ML UNIT-DOSE CUP PO PRN (10:31)
[2022-11-03] MEDS ORDERED: BISMUTH SUBSALICYLATE 262 MG/15 ML BTL PO PRN (10:31)
[2022-11-03] MEDS ORDERED: BENZONATATE 200 MG CAPSULE PO PRN (10:31)
[2022-11-03] MEDS ORDERED: IBUPROFEN 400 MG TABLET (FP) PO PRN (10:31)
[2022-11-03] MEDS: chlordiazePOXIDE HCL 25 MG CAPSULE PO SCH ×2 (20:58→22:23)
[2022-11-03] MEDS: PRENATAL VITAMINS W/ FOLIC ACID TABLET (FP) PO SCH (21:05)
[2022-11-03] MEDS: MELATONIN 5 MG TABLETS PO SCH (22:23)
[2022-11-03] MEDS: THIAMINE HCL 100 MG TABLET (FP) PO SCH (22:23)
[2022-11-03] MEDS: BUPRENORPHINE/NALOXONE 8 MG/2 MG FILM PACKET SL SCH (22:24)
[2022-11-03] MEDS: IBUPROFEN 600 MG TABLET (FP) PO PRN (22:24)
[2022-11-04] MEDS: chlordiazePOXIDE HCL 25 MG CAPSULE PO SCH ×4 (05:31→22:15)
[2022-11-04] MEDS: BUPRENORPHINE/NALOXONE 8 MG/2 MG FILM PACKET SL SCH ×2 (10:07→22:14)
[2022-11-04] MEDS: PRENATAL VITAMINS W/ FOLIC ACID TABLET (FP) PO SCH (10:07)
[2022-11-04] MEDS: IBUPROFEN 600 MG TABLET (FP) PO PRN (16:54)
[2022-11-04] MEDS: THIAMINE HCL 100 MG TABLET (FP) PO SCH (22:15)
[2022-11-04] MEDS: MELATONIN 5 MG TABLETS PO SCH (22:15)
[2022-11-05] MEDS: chlordiazePOXIDE HCL 25 MG CAPSULE PO SCH ×4 (05:25→22:28)
[2022-11-05] MEDS: PRENATAL VITAMINS W/ FOLIC ACID TABLET (FP) PO SCH (10:32)
[2022-11-05] MEDS: BUPRENORPHINE/NALOXONE 8 MG/2 MG FILM PACKET SL SCH ×2 (10:32→22:29)
[2022-11-05] MEDS: IBUPROFEN 600 MG TABLET (FP) PO PRN (15:25)
[2022-11-05] MEDS: MELATONIN 5 MG TABLETS PO SCH (22:27)
[2022-11-05] MEDS: THIAMINE HCL 100 MG TABLET (FP) PO SCH (22:28)
[2022-11-06] MEDS ORDERED: chlordiazePOXIDE HCL 10 MG CAPSULE PO PRN
[2022-11-06] MEDS: chlordiazePOXIDE HCL 10 MG CAPSULE PO SCH ×2 (05:22→10:16)
[2022-11-06 06:37] VITALS: BP 128/82; PULSE 82; RESP 20; TEMP 97.8
[2022-11-06] MEDS: PRENATAL VITAMINS W/ FOLIC ACID TABLET (FP) PO SCH (10:16)
[2022-11-06] MEDS: BUPRENORPHINE/NALOXONE 8 MG/2 MG FILM PACKET SL SCH (10:16)
[2022-11-07] MEDS ORDERED: chlordiazePOXIDE HCL 10 MG CAPSULE PO SCH (05:00)
[2022-11-08] MEDS ORDERED: chlordiazePOXIDE HCL 10 MG CAPSULE PO ONE (05:00)
== END 2022-11-06 08:46 | disposition left against medical advice (07) | DRG 770 ==
LOC: YASAS 09:52 → Y3N 10:57
PROVIDERS: ADMIT Allergy & Immunology; ATTEND Surgery
PROC: HZ2ZZZZ Detoxification Services for Substance Abuse Treatment (ICD-10-PCS; principal; 2022-11-03)
DX: F10.230 Alcohol dependence with withdrawal, uncomplicated (principal); F13.20 Sedative, hypnotic or anxiolytic dependence, uncomplicated; F14.20 Cocaine dependence, uncomplicated; F11.20 Opioid dependence, uncomplicated; F19.24 Other psychoactive substance dependence with psychoactive substance-induced mood disorder; F19.280 Other psychoactive substance dependence with psychoactive substance-induced anxiety disorder; F19.282 Other psychoactive substance dependence with psychoactive substance-induced sleep disorder; F32.A Depression, unspecified; G47.30 Sleep apnea, unspecified; I25.10 Atherosclerotic heart disease of native coronary artery without angina pectoris; I10 Essential (primary) hypertension; I25.2 Old myocardial infarction; Z87.891 Personal history of nicotine dependence; Z87.828 Personal history of other (healed) physical injury and trauma; Z91.148 Patient's other noncompliance with medication regimen for other reason; S00.90XA Unspecified superficial injury of unspecified part of head, initial encounter; W18.39XA Other fall on same level, initial encounter; Y92.480 Sidewalk as the place of occurrence of the external cause
CPT/HCPCS: 36415; 86780

== ENCOUNTER 2022-11-03 11:23 | Emergency (ER) | payer OTHER ==
[2022-11-03 12:18] VITALS: TEMP 98; BMI 28.3
[2022-11-03 13:46] LABS: BASO % 0.9 % (0-2.0); EOS % 0.2 % (0-4.5); HEMOGLOBIN 13.8 GM/dL (11.7-16.9); MCH 31.4 pg (25.7-33.7); MCHC 36.4 g/dl (32.0-35.9); MEAN CELL VOLUME 86.3 fl (80-96); MONO % 8.4 % (3.8-10.2); NEUT % 66.5 % (42.8-82.8); PLATELET COUNT 242 10^3/uL (134-434); RBC 4.41 M/mm3 (4.00-5.60); RDW 13.1 % (11.9-15.9); WHITE BLOOD COUNT 9.5 K/mm3 (4.0-10.0)
[2022-11-03 14:05] LABS: CHLORIDE 103 mmol/L (98-107); POTASSIUM 3.7 mmol/L (3.5-5.1); SODIUM 138 mmol/L (136-145)
[2022-11-03 14:09] LABS: ALBUMIN 4.1 g/dl (3.4-5.0); ANION GAP 6 MMOL/L (8-16); BLOOD UREA NITROGEN 22.8 mg/dL (7-18); CO2 29 mmol/L (21-32); GLUCOSE,RANDOM 101 mg/dL (74-106); MAGNESIUM 2.2 mg/dL (1.8-2.4)
[2022-11-03 14:11] LABS: CREATININE 0.8 mg/dL (0.55-1.3); SGOT/AST 20 U/L (15-37)
[2022-11-03 14:13] LABS: TOT PROT 7.4 g/dl (6.4-8.2)
[2022-11-03 14:14] LABS: ALK PHOS 44 U/L (45-117)
[2022-11-03 14:42] LABS: SGPT/ALT 39 U/L (13-61)
[2022-11-03 18:13] VITALS: BP 135/89; PULSE 93; RESP 18
== END 2022-11-03 18:13 | disposition home or self-care (01) ==
LOC: JER 11:23
DX: F13.10 Sedative, hypnotic or anxiolytic abuse, uncomplicated (principal); F14.10 Cocaine abuse, uncomplicated; F10.239 Alcohol dependence with withdrawal, unspecified; S00.81XA Abrasion of other part of head, initial encounter; R40.0 Somnolence; W19.XXXA Unspecified fall, initial encounter; Y90.1 Blood alcohol level of 20-39 mg/100 ml; Z20.822 Contact with and (suspected) exposure to COVID-19
CPT/HCPCS: 36415; 70450-TC; 71046-TC-FY; 72125-TC; 80053; 80307; 83735; 85025; 93005; 93010; 99285-25; C9803-CS; U0003; U0005

== ENCOUNTER 2022-12-10 16:31 | Inpatient (IN) | payer OTHER ==
[2022-12-10 17:16] VITALS: BMI 32.1
[2022-12-10] MEDS ORDERED: MELATONIN 5 MG TABLETS PO PRN (17:55)
[2022-12-10] MEDS ORDERED: LOPERAMIDE HCL 2 MG CAPSULE PO PRN (17:55)
[2022-12-10] MEDS ORDERED: DICYCLOMINE HCL 10 MG CAPSULE PO PRN (17:55)
[2022-12-10] MEDS ORDERED: ACETAMINOPHEN 325 MG TABLET (FP) PO PRN (17:55)
[2022-12-10] MEDS ORDERED: P-EPHED 60MG/TRIPROLIDI 2.5MG TABLET PO PRN (17:55)
[2022-12-10] MEDS ORDERED: POLYETHYLENE GLYCOL (HEALTHYLAX) 3350 17 GM PACKET PO PRN (17:55)
[2022-12-10] MEDS ORDERED: MAGNESIUM HYDROX 2400MG/30ML ORAL SUSPENSION 30 ML CUP PO PRN (17:55)
[2022-12-10] MEDS ORDERED: ONDANSETRON *ODT* 4 MG TABLET SL PRN (17:55)
[2022-12-10] MEDS ORDERED: MAG HYDROX/AL HYDROX/SIMETH 30 ML UNIT-DOSE CUP PO PRN (17:55)
[2022-12-10] MEDS ORDERED: IBUPROFEN 400 MG TABLET (FP) PO PRN (17:55)
[2022-12-10] MEDS ORDERED: BENZONATATE 200 MG CAPSULE PO PRN (17:55)
[2022-12-10] MEDS ORDERED: NALOXONE HCL 0.4 MG/ML VIAL IM PRN (17:55)
[2022-12-10] MEDS ORDERED: NALOXONE HCL (KLOXXADO) 8 MG SPRAY NS PRN (17:55)
[2022-12-10] MEDS ORDERED: BENZOCAINE/MENTHOL (CHLORASEPTIC ) LOZENGE MM PRN (17:55)
[2022-12-10] MEDS ORDERED: BISMUTH SUBSALICYLATE 524 MG/30 ML PO PRN (17:55)
[2022-12-10] MEDS ORDERED: hydrOXYzine PAMOATE 25 MG CAPSULE (FP) PO PRN (17:55)
[2022-12-10] MEDS ORDERED: guaiFENesin 600 MG TABLET.ER (FP) PO PRN (17:55)
[2022-12-10] MEDS: THIAMINE HCL 100 MG TABLET (FP) PO SCH (22:28)
[2022-12-11] MEDS: METHOCARBAMOL 500 MG TABLET PO PRN ×2 (01:17→14:52)
[2022-12-11] MEDS: IBUPROFEN 600 MG TABLET (FP) PO PRN ×2 (01:17→14:52)
[2022-12-11 09:57] LABS: HEMATOCRIT 39.3 % (35.4-49); HEMOGLOBIN 13.4 GM/dL (11.7-16.9); MCH 30.6 pg (25.7-33.7); MCHC 34.1 g/dl (32.0-35.9); MEAN CELL VOLUME 89.7 fl (80-96); MEAN PLT VOLUME 8.3 fl (7.5-11.1); PLATELET COUNT 245 10^3/uL (134-434); RBC 4.38 M/mm3 (4.00-5.60); RDW 13.1 % (11.9-15.9); WHITE BLOOD COUNT 8.1 K/mm3 (4.0-10.0)
[2022-12-11 09:59] LABS: POTASSIUM 4.6 mmol/L (3.5-5.1)
[2022-12-11 10:05] LABS: CALCIUM 8.5 mg/dL (8.5-10.1)
[2022-12-11 10:06] LABS: ALBUMIN 3.1 g/dl (3.4-5.0); BLOOD UREA NITROGEN 24.1 mg/dL (7-18)
[2022-12-11 10:08] LABS: CREATININE 0.6 mg/dL (0.55-1.3)
[2022-12-11 10:10] LABS: BILIRUBIN,TOTAL 0.6 mg/dL (0.2-1)
[2022-12-11] MEDS: PRENATAL VITAMINS W/ FOLIC ACID TABLET (FP) PO SCH (10:26)
[2022-12-11] MEDS: BUPRENORPHINE/NALOXONE 8 MG/2 MG FILM PACKET SL SCH ×2 (10:26→22:20)
[2022-12-11] MEDS ORDERED: diazePAM 5 MG TABLET PO ONE (15:06)
[2022-12-11] MEDS: diazePAM 5 MG TABLET PO SCH ×2 (17:40→22:19)
[2022-12-11] MEDS: THIAMINE HCL 100 MG TABLET (FP) PO SCH (22:19)
[2022-12-11] MEDS: SUVOREXANT 10 MG TABLET PO PRN (22:20)
[2022-12-12] MEDS: diazePAM 5 MG TABLET PO SCH ×3 (05:28→22:15)
[2022-12-12] MEDS: BUPRENORPHINE/NALOXONE 8 MG/2 MG FILM PACKET SL SCH ×2 (10:07→22:16)
[2022-12-12] MEDS: PRENATAL VITAMINS W/ FOLIC ACID TABLET (FP) PO SCH (10:07)
[2022-12-12] MEDS: ESCITALOPRAM OXALATE 10 MG TABLET PO SCH (10:07)
[2022-12-12] MEDS: diazePAM 5 MG TABLET PO PRN ×2 (10:08→17:56)
[2022-12-12] MEDS: THIAMINE HCL 100 MG TABLET (FP) PO SCH (22:15)
[2022-12-12] MEDS: SUVOREXANT 10 MG TABLET PO PRN (22:16)
[2022-12-13] MEDS: METHOCARBAMOL 500 MG TABLET PO PRN ×2 (05:09→22:13)
[2022-12-13] MEDS: diazePAM 5 MG TABLET PO SCH ×2 (05:09→17:12)
[2022-12-13] MEDS: diazePAM 5 MG TABLET PO PRN (10:10)
[2022-12-13] MEDS: PRENATAL VITAMINS W/ FOLIC ACID TABLET (FP) PO SCH (10:11)
[2022-12-13] MEDS: BUPRENORPHINE/NALOXONE 8 MG/2 MG FILM PACKET SL SCH ×2 (10:11→22:13)
[2022-12-13] MEDS: ESCITALOPRAM OXALATE 10 MG TABLET PO SCH (10:11)
[2022-12-13 16:51] VITALS: RESP 18
[2022-12-13] MEDS: SUVOREXANT 10 MG TABLET PO PRN (22:12)
[2022-12-13] MEDS: THIAMINE HCL 100 MG TABLET (FP) PO SCH (22:13)
[2022-12-14] MEDS ORDERED: diazePAM 5 MG TABLET PO ONE (06:00)
[2022-12-14] MEDS: BUPRENORPHINE/NALOXONE 8 MG/2 MG FILM PACKET SL SCH (10:00)
[2022-12-14] MEDS: ESCITALOPRAM OXALATE 10 MG TABLET PO SCH (10:01)
[2022-12-14] MEDS: PRENATAL VITAMINS W/ FOLIC ACID TABLET (FP) PO SCH (10:01)
[2022-12-14 12:52] VITALS: BP 127/80; PULSE 83; TEMP 97.5
== END 2022-12-14 18:00 | disposition other institution (70) | DRG 773 ==
LOC: YASAS 16:31 → UNDOADMIN 17:56 → Y3N 17:56
PROVIDERS: ADMIT Allergy & Immunology; ATTEND Surgery
PROC: HZ2ZZZZ Detoxification Services for Substance Abuse Treatment (ICD-10-PCS; principal; 2022-12-10)
DX: F10.230 Alcohol dependence with withdrawal, uncomplicated (principal); F13.230 Sedative, hypnotic or anxiolytic dependence with withdrawal, uncomplicated; F11.20 Opioid dependence, uncomplicated; F12.20 Cannabis dependence, uncomplicated; F19.24 Other psychoactive substance dependence with psychoactive substance-induced mood disorder; F32.A Depression, unspecified; G47.00 Insomnia, unspecified; E78.5 Hyperlipidemia, unspecified; I25.10 Atherosclerotic heart disease of native coronary artery without angina pectoris; I10 Essential (primary) hypertension; I25.2 Old myocardial infarction; R79.89 Other specified abnormal findings of blood chemistry; Z62.810 Personal history of physical and sexual abuse in childhood; Z59.00 Homelessness unspecified; Z56.0 Unemployment, unspecified; Z87.891 Personal history of nicotine dependence; Z91.148 Patient's other noncompliance with medication regimen for other reason
CPT/HCPCS: 36415; 80053; 85027; 86780; 87635

== ENCOUNTER 2022-12-14 18:22 | Inpatient (IN) | payer OTHER ==
[2022-12-14] MEDS ORDERED: COLLOIDAL OATMEAL 1 BAR EACH TP PRN (20:23)
[2022-12-14] MEDS ORDERED: BENZONATATE 200 MG CAPSULE PO PRN (20:23)
[2022-12-14] MEDS ORDERED: NALOXONE HCL 0.4 MG/ML VIAL IVPUSH PRN (20:23)
[2022-12-14] MEDS ORDERED: P-EPHED 60MG/TRIPROLIDI 2.5MG TABLET PO PRN (20:23)
[2022-12-14] MEDS ORDERED: NALOXONE HCL (KLOXXADO) 8 MG SPRAY NS PRN (20:23)
[2022-12-14] MEDS ORDERED: MAGNESIUM HYDROX 2400MG/30ML ORAL SUSPENSION 30 ML CUP PO PRN (20:23)
[2022-12-14] MEDS ORDERED: MAG HYDROX/AL HYDROX/SIMETH 30 ML UNIT-DOSE CUP PO PRN (20:23)
[2022-12-14] MEDS ORDERED: guaiFENesin 600 MG TABLET.ER (FP) PO PRN (20:23)
[2022-12-14] MEDS ORDERED: POLYETHYLENE GLYCOL (HEALTHYLAX) 3350 17 GM PACKET PO PRN (20:23)
[2022-12-14] MEDS ORDERED: BENZOCAINE/MENTHOL (CHLORASEPTIC ) LOZENGE MM PRN (20:23)
[2022-12-14] MEDS ORDERED: NICOTINE 10 MG CARTRIDGE (INHALER) IH PRN (20:23)
[2022-12-14] MEDS ORDERED: AMMONIUM LACTATE 12% LOTION 225 GM BOTTLE TP PRN (20:23)
[2022-12-14] MEDS ORDERED: MELATONIN 5 MG TABLETS PO PRN (20:23)
[2022-12-14] MEDS ORDERED: LOPERAMIDE HCL 2 MG CAPSULE PO PRN (20:23)
[2022-12-14] MEDS ORDERED: METHOCARBAMOL 500 MG TABLET PO PRN (20:23)
[2022-12-14] MEDS: THIAMINE HCL 100 MG TABLET (FP) PO SCH (21:16)
[2022-12-14] MEDS: BUPRENORPHINE/NALOXONE 8 MG/2 MG FILM PACKET SL SCH (21:16)
[2022-12-15] MEDS: PRENATAL VITAMINS W/ FOLIC ACID TABLET (FP) PO SCH (09:22)
[2022-12-15] MEDS: BUPRENORPHINE/NALOXONE 8 MG/2 MG FILM PACKET SL SCH ×2 (09:24→22:06)
[2022-12-15] MEDS: THIAMINE HCL 100 MG TABLET (FP) PO SCH (21:36)
[2022-12-15] MEDS: SUVOREXANT 10 MG TABLET PO PRN (21:37)
[2022-12-16] MEDS: PRENATAL VITAMINS W/ FOLIC ACID TABLET (FP) PO SCH (10:15)
[2022-12-16] MEDS: IBUPROFEN 600 MG TABLET (FP) PO PRN ×2 (10:16→21:12)
[2022-12-16] MEDS: BUPRENORPHINE/NALOXONE 8 MG/2 MG FILM PACKET SL SCH (10:17)
[2022-12-16] MEDS: VITAMINS A AND D TOPICAL OINTMENT 60 GM TUBE TP SCH (19:25)
[2022-12-16] MEDS: THIAMINE HCL 100 MG TABLET (FP) PO SCH (21:10)
[2022-12-16] MEDS: SUVOREXANT 10 MG TABLET PO PRN (21:11)
[2022-12-17] MEDS: VITAMINS A AND D TOPICAL OINTMENT 60 GM TUBE TP SCH ×4 (02:00→18:07)
[2022-12-17] MEDS ORDERED: BUPRENORPHINE/NALOXONE 8 MG/2 MG FILM PACKET SL SCH (06:00)
[2022-12-17] MEDS: BUPRENORPHINE/NALOXONE 8 MG/2 MG FILM PACKET SL SCH ×2 (06:08→10:40)
[2022-12-17] MEDS: PRENATAL VITAMINS W/ FOLIC ACID TABLET (FP) PO SCH (10:40)
[2022-12-17] MEDS: THIAMINE HCL 100 MG TABLET (FP) PO SCH (21:20)
[2022-12-17] MEDS: SUVOREXANT 10 MG TABLET PO PRN (21:21)
[2022-12-17] MEDS: IBUPROFEN 400 MG TABLET (FP) PO PRN (21:21)
[2022-12-18] MEDS: VITAMINS A AND D TOPICAL OINTMENT 60 GM TUBE TP SCH ×4 (00:30→18:05)
[2022-12-18] MEDS: BUPRENORPHINE/NALOXONE 8 MG/2 MG FILM PACKET SL SCH (09:38)
[2022-12-18] MEDS: PRENATAL VITAMINS W/ FOLIC ACID TABLET (FP) PO PRN (09:39)
[2022-12-18] MEDS: THIAMINE HCL 100 MG TABLET (FP) PO SCH (21:11)
[2022-12-18] MEDS: SUVOREXANT 10 MG TABLET PO PRN (21:12)
[2022-12-19] MEDS: VITAMINS A AND D TOPICAL OINTMENT 60 GM TUBE TP SCH ×3 (00:30→11:43)
[2022-12-19] MEDS: BUPRENORPHINE/NALOXONE 8 MG/2 MG FILM PACKET SL SCH (06:11)
[2022-12-19] MEDS: IBUPROFEN 600 MG TABLET (FP) PO PRN (11:43)
[2022-12-19] MEDS ORDERED: BACITRACIN ZINC 15 GM TUBE TOPICAL OINTMENT TP PRN (12:16)
[2022-12-19] MEDS: BACITRACIN ZINC 15 GM TUBE TOPICAL OINTMENT TP PRN (13:57)
[2022-12-19] MEDS: THIAMINE HCL 100 MG TABLET (FP) PO SCH (21:16)
[2022-12-19] MEDS: SUVOREXANT 10 MG TABLET PO PRN (21:17)
[2022-12-20] MEDS: BUPRENORPHINE/NALOXONE 8 MG/2 MG FILM PACKET SL SCH (06:11)
[2022-12-20] MEDS: THIAMINE HCL 100 MG TABLET (FP) PO SCH (21:18)
[2022-12-20] MEDS: SUVOREXANT 10 MG TABLET PO PRN (21:18)
[2022-12-21] MEDS: BUPRENORPHINE/NALOXONE 8 MG/2 MG FILM PACKET SL SCH (06:07)
[2022-12-21] MEDS: PRENATAL VITAMINS W/ FOLIC ACID TABLET (FP) PO PRN (09:45)
[2022-12-21] MEDS: BACITRACIN ZINC 15 GM TUBE TOPICAL OINTMENT TP PRN (09:46)
[2022-12-21] MEDS: VITAMINS A AND D TOPICAL OINTMENT 60 GM TUBE TP PRN (09:47)
[2022-12-21] MEDS: THIAMINE HCL 100 MG TABLET (FP) PO SCH (21:08)
[2022-12-21] MEDS: ACETAMINOPHEN 325 MG TABLET (FP) PO PRN (21:09)
[2022-12-21] MEDS: SUVOREXANT 10 MG TABLET PO PRN (21:10)
[2022-12-22] MEDS: BUPRENORPHINE/NALOXONE 8 MG/2 MG FILM PACKET SL SCH (06:05)
[2022-12-22] MEDS: SUVOREXANT 10 MG TABLET PO PRN (21:04)
[2022-12-22] MEDS: THIAMINE HCL 100 MG TABLET (FP) PO SCH (21:04)
[2022-12-22] MEDS: IBUPROFEN 600 MG TABLET (FP) PO PRN (21:04)
[2022-12-23] MEDS: BUPRENORPHINE/NALOXONE 8 MG/2 MG FILM PACKET SL SCH (06:04)
[2022-12-23] MEDS: PRENATAL VITAMINS W/ FOLIC ACID TABLET (FP) PO PRN (10:04)
[2022-12-23] MEDS: VITAMINS A AND D TOPICAL OINTMENT 60 GM TUBE TP PRN (10:04)
[2022-12-23] MEDS: BACITRACIN ZINC 15 GM TUBE TOPICAL OINTMENT TP PRN (10:05)
[2022-12-23] MEDS: THIAMINE HCL 100 MG TABLET (FP) PO SCH (21:05)
[2022-12-23] MEDS: ACETAMINOPHEN 325 MG TABLET (FP) PO PRN (21:06)
[2022-12-23] MEDS: SUVOREXANT 10 MG TABLET PO PRN (21:45)
[2022-12-24] MEDS: BUPRENORPHINE/NALOXONE 8 MG/2 MG FILM PACKET SL SCH (06:14)
[2022-12-24] MEDS: PRENATAL VITAMINS W/ FOLIC ACID TABLET (FP) PO PRN (09:59)
[2022-12-24] MEDS: SUVOREXANT 10 MG TABLET PO PRN (21:05)
[2022-12-24] MEDS: IBUPROFEN 600 MG TABLET (FP) PO PRN (21:05)
[2022-12-24] MEDS: DOCUSATE SODIUM 100 MG CAPSULE (FP) PO PRN (21:05)
[2022-12-24] MEDS: THIAMINE HCL 100 MG TABLET (FP) PO SCH (21:05)
[2022-12-25] MEDS: BUPRENORPHINE/NALOXONE 8 MG/2 MG FILM PACKET SL SCH (06:01)
[2022-12-25] MEDS: BACITRACIN ZINC 15 GM TUBE TOPICAL OINTMENT TP PRN (09:42)
[2022-12-25] MEDS: PRENATAL VITAMINS W/ FOLIC ACID TABLET (FP) PO PRN (09:42)
[2022-12-25] MEDS: THIAMINE HCL 100 MG TABLET (FP) PO SCH (21:07)
[2022-12-25] MEDS: IBUPROFEN 600 MG TABLET (FP) PO PRN (21:08)
[2022-12-25] MEDS: SUVOREXANT 10 MG TABLET PO PRN (21:08)
[2022-12-26] MEDS: BUPRENORPHINE/NALOXONE 8 MG/2 MG FILM PACKET SL SCH (05:47)
[2022-12-26] MEDS: PRENATAL VITAMINS W/ FOLIC ACID TABLET (FP) PO PRN (09:38)
[2022-12-26] MEDS: BACITRACIN ZINC 15 GM TUBE TOPICAL OINTMENT TP PRN (09:39)
[2022-12-26] MEDS: SUVOREXANT 10 MG TABLET PO PRN (21:06)
[2022-12-26] MEDS: THIAMINE HCL 100 MG TABLET (FP) PO SCH (21:06)
[2022-12-26] MEDS: ACETAMINOPHEN 325 MG TABLET (FP) PO PRN (21:07)
[2022-12-27] MEDS: BUPRENORPHINE/NALOXONE 8 MG/2 MG FILM PACKET SL SCH (06:00)
[2022-12-27] MEDS: THIAMINE HCL 100 MG TABLET (FP) PO SCH (21:06)
[2022-12-27] MEDS: ACETAMINOPHEN 325 MG TABLET (FP) PO PRN (21:07)
[2022-12-28] MEDS: BUPRENORPHINE/NALOXONE 8 MG/2 MG FILM PACKET SL SCH (06:08)
[2022-12-28] MEDS ORDERED: TUBERCULIN PPD 5 TU/0.1ML VIAL ID ONE (08:08)
[2022-12-28] MEDS: PRENATAL VITAMINS W/ FOLIC ACID TABLET (FP) PO PRN (09:44)
[2022-12-28] MEDS: THIAMINE HCL 100 MG TABLET (FP) PO SCH (21:08)
[2022-12-28] MEDS: SUVOREXANT 10 MG TABLET PO PRN (21:09)
[2022-12-29] MEDS: BUPRENORPHINE/NALOXONE 8 MG/2 MG FILM PACKET SL SCH (05:59)
[2022-12-29] MEDS: PRENATAL VITAMINS W/ FOLIC ACID TABLET (FP) PO PRN (09:51)
[2022-12-29] MEDS: BACITRACIN ZINC 15 GM TUBE TOPICAL OINTMENT TP PRN (09:52)
[2022-12-29 18:14] LABS: PH,URINE 6.5 (5.0-8.0); URINE APPEARANCE CLEAR; URINE BILIRUBIN NEGATIVE (NEGATIVE); URINE COLOR YELLOW; URINE GLUCOSE (UA) NEGATIVE (NEGATIVE); URINE KETONE NEGATIVE (NEGATIVE); URINE LEUK ESTERASE NEGATIVE (NEGATIVE); URINE NITRITE NEGATIVE (NEGATIVE); URINE PROTEIN NEGATIVE (NEGATIVE); URINE UROBILINOGEN 0.2 mg/dL (0.2-1.0)
[2022-12-29] MEDS: SUVOREXANT 10 MG TABLET PO PRN (21:03)
[2022-12-29] MEDS: THIAMINE HCL 100 MG TABLET (FP) PO SCH (21:03)
[2022-12-30] MEDS: BUPRENORPHINE/NALOXONE 8 MG/2 MG FILM PACKET SL SCH (06:03)
[2022-12-30] MEDS: PRENATAL VITAMINS W/ FOLIC ACID TABLET (FP) PO PRN (10:02)
[2022-12-30] MEDS: THIAMINE HCL 100 MG TABLET (FP) PO SCH (21:06)
[2022-12-30] MEDS: IBUPROFEN 600 MG TABLET (FP) PO PRN (21:07)
[2022-12-30] MEDS: SUVOREXANT 10 MG TABLET PO PRN (21:07)
[2022-12-31] MEDS: BUPRENORPHINE/NALOXONE 8 MG/2 MG FILM PACKET SL SCH (06:11)
[2022-12-31] MEDS: BACITRACIN ZINC 15 GM TUBE TOPICAL OINTMENT TP PRN (09:54)
[2022-12-31] MEDS: DOCUSATE SODIUM 100 MG CAPSULE (FP) PO PRN (09:54)
[2022-12-31] MEDS: PRENATAL VITAMINS W/ FOLIC ACID TABLET (FP) PO PRN (09:54)
[2022-12-31] MEDS: THIAMINE HCL 100 MG TABLET (FP) PO SCH (21:16)
[2022-12-31] MEDS: SUVOREXANT 10 MG TABLET PO PRN (21:17)
[2023-01-01] MEDS: BUPRENORPHINE/NALOXONE 8 MG/2 MG FILM PACKET SL SCH (06:12)
[2023-01-01] MEDS: PRENATAL VITAMINS W/ FOLIC ACID TABLET (FP) PO PRN (09:50)
[2023-01-01] MEDS: ACETAMINOPHEN 325 MG TABLET (FP) PO PRN (09:50)
[2023-01-01] MEDS: THIAMINE HCL 100 MG TABLET (FP) PO SCH (21:05)
[2023-01-01] MEDS: IBUPROFEN 400 MG TABLET (FP) PO PRN (21:06)
[2023-01-01] MEDS: SUVOREXANT 10 MG TABLET PO PRN (21:08)
[2023-01-02] MEDS: BUPRENORPHINE/NALOXONE 8 MG/2 MG FILM PACKET SL SCH (06:16)
[2023-01-02] MEDS: PRENATAL VITAMINS W/ FOLIC ACID TABLET (FP) PO PRN (09:40)
[2023-01-02] MEDS: VITAMINS A AND D TOPICAL OINTMENT 60 GM TUBE TP PRN (09:41)
[2023-01-02] MEDS: THIAMINE HCL 100 MG TABLET (FP) PO SCH (21:20)
[2023-01-02] MEDS: ACETAMINOPHEN 325 MG TABLET (FP) PO PRN (21:20)
[2023-01-02] MEDS: SUVOREXANT 10 MG TABLET PO PRN (21:21)
[2023-01-03] MEDS: BUPRENORPHINE/NALOXONE 8 MG/2 MG FILM PACKET SL SCH (06:07)
[2023-01-03] MEDS: PRENATAL VITAMINS W/ FOLIC ACID TABLET (FP) PO PRN (09:59)
[2023-01-03] MEDS: THIAMINE HCL 100 MG TABLET (FP) PO SCH (21:12)
[2023-01-03] MEDS: SUVOREXANT 10 MG TABLET PO PRN (21:13)
[2023-01-03] MEDS: ACETAMINOPHEN 325 MG TABLET (FP) PO PRN (21:13)
[2023-01-03] MEDS: hydrOXYzine PAMOATE 25 MG CAPSULE (FP) PO PRN (21:13)
[2023-01-04] MEDS: BUPRENORPHINE/NALOXONE 8 MG/2 MG FILM PACKET SL SCH (06:11)
[2023-01-04] MEDS: PRENATAL VITAMINS W/ FOLIC ACID TABLET (FP) PO PRN (09:44)
[2023-01-04] MEDS: THIAMINE HCL 100 MG TABLET (FP) PO SCH (21:07)
[2023-01-04] MEDS: SUVOREXANT 10 MG TABLET PO PRN (21:08)
[2023-01-04] MEDS: IBUPROFEN 400 MG TABLET (FP) PO PRN (21:08)
[2023-01-05] MEDS: BUPRENORPHINE/NALOXONE 8 MG/2 MG FILM PACKET SL SCH (06:06)
[2023-01-05] MEDS: PRENATAL VITAMINS W/ FOLIC ACID TABLET (FP) PO PRN (10:13)
[2023-01-05] MEDS: hydrOXYzine PAMOATE 25 MG CAPSULE (FP) PO PRN (21:03)
[2023-01-05] MEDS: THIAMINE HCL 100 MG TABLET (FP) PO SCH (21:03)
[2023-01-05] MEDS: SUVOREXANT 10 MG TABLET PO PRN (21:03)
[2023-01-05] MEDS: IBUPROFEN 600 MG TABLET (FP) PO PRN (21:04)
[2023-01-06] MEDS: BUPRENORPHINE/NALOXONE 8 MG/2 MG FILM PACKET SL SCH (06:15)
[2023-01-06] MEDS: DOCUSATE SODIUM 100 MG CAPSULE (FP) PO PRN (10:01)
[2023-01-06] MEDS: PRENATAL VITAMINS W/ FOLIC ACID TABLET (FP) PO PRN (10:01)
[2023-01-06] MEDS: ERYTHROMYCIN 0.5% OPHTHALMIC OINTMENT 3.5 GM TUBE OD SCH (15:22)
[2023-01-06] MEDS: THIAMINE HCL 100 MG TABLET (FP) PO SCH (21:07)
[2023-01-06] MEDS: hydrOXYzine PAMOATE 25 MG CAPSULE (FP) PO PRN (21:07)
[2023-01-06] MEDS: SUVOREXANT 10 MG TABLET PO PRN (21:07)
[2023-01-06] MEDS: ACETAMINOPHEN 325 MG TABLET (FP) PO PRN (21:08)
[2023-01-07] MEDS: BUPRENORPHINE/NALOXONE 8 MG/2 MG FILM PACKET SL SCH (06:23)
[2023-01-07] MEDS: ERYTHROMYCIN 0.5% OPHTHALMIC OINTMENT 3.5 GM TUBE OD SCH (10:06)
[2023-01-07] MEDS: PRENATAL VITAMINS W/ FOLIC ACID TABLET (FP) PO PRN (10:07)
[2023-01-07] MEDS: hydrOXYzine PAMOATE 25 MG CAPSULE (FP) PO PRN (21:07)
[2023-01-07] MEDS: ACETAMINOPHEN 325 MG TABLET (FP) PO PRN (21:07)
[2023-01-07] MEDS: DOCUSATE SODIUM 100 MG CAPSULE (FP) PO PRN (21:07)
[2023-01-07] MEDS: THIAMINE HCL 100 MG TABLET (FP) PO SCH (21:07)
[2023-01-07] MEDS: SUVOREXANT 10 MG TABLET PO PRN (21:09)
[2023-01-08] MEDS: BUPRENORPHINE/NALOXONE 8 MG/2 MG FILM PACKET SL SCH (06:11)
[2023-01-08] MEDS: PRENATAL VITAMINS W/ FOLIC ACID TABLET (FP) PO PRN (09:51)
[2023-01-08] MEDS: ERYTHROMYCIN 0.5% OPHTHALMIC OINTMENT 3.5 GM TUBE OD SCH (09:51)
[2023-01-08] MEDS: IBUPROFEN 600 MG TABLET (FP) PO PRN (21:04)
[2023-01-08] MEDS: THIAMINE HCL 100 MG TABLET (FP) PO SCH (21:04)
[2023-01-08] MEDS: SUVOREXANT 10 MG TABLET PO PRN (21:05)
[2023-01-09] MEDS: BUPRENORPHINE/NALOXONE 8 MG/2 MG FILM PACKET SL SCH (06:11)
[2023-01-09 07:12] VITALS: PULSE 81
[2023-01-09] MEDS: PRENATAL VITAMINS W/ FOLIC ACID TABLET (FP) PO PRN (09:48)
[2023-01-09] MEDS: ERYTHROMYCIN 0.5% OPHTHALMIC OINTMENT 3.5 GM TUBE OD SCH (09:49)
[2023-01-09] MEDS: THIAMINE HCL 100 MG TABLET (FP) PO SCH (21:06)
[2023-01-09] MEDS: hydrOXYzine PAMOATE 25 MG CAPSULE (FP) PO PRN (21:06)
[2023-01-09] MEDS: SUVOREXANT 10 MG TABLET PO PRN (21:07)
[2023-01-10] MEDS: BUPRENORPHINE/NALOXONE 8 MG/2 MG FILM PACKET SL SCH (06:07)
[2023-01-10 06:33] VITALS: BP 122/81; RESP 16; TEMP 97.9
[2023-01-10] MEDS: ERYTHROMYCIN 0.5% OPHTHALMIC OINTMENT 3.5 GM TUBE OD SCH (09:11)
== END 2023-01-10 09:31 | disposition home or self-care (01) | DRG 772 ==
LOC: YASAS 18:22 → Y3E 18:24
PROVIDERS: ADMIT Allergy & Immunology; ATTEND Psychiatry & Neurology Pain Medicine
PROC: HZ42ZZZ Group Counseling for Substance Abuse Treatment, Cognitive-Behavioral (ICD-10-PCS; principal; 2022-12-14)
DX: F10.20 Alcohol dependence, uncomplicated (principal); F14.20 Cocaine dependence, uncomplicated; F13.20 Sedative, hypnotic or anxiolytic dependence, uncomplicated; F11.20 Opioid dependence, uncomplicated; F31.9 Bipolar disorder, unspecified; F41.9 Anxiety disorder, unspecified; E78.5 Hyperlipidemia, unspecified; I10 Essential (primary) hypertension; H00.012 Hordeolum externum right lower eyelid; B35.3 Tinea pedis; L85.0 Acquired ichthyosis; R35.0 Frequency of micturition; E66.9 Obesity, unspecified; Z68.32 Body mass index [BMI] 32.0-32.9, adult; Z87.891 Personal history of nicotine dependence; Z91.148 Patient's other noncompliance with medication regimen for other reason; Z59.00 Homelessness unspecified
CPT/HCPCS: 81003